=== PATIENT | female | born 1995 | race Caucasian/White ===

== ENCOUNTER → 2020-07-15 | Outpatient (CLI) | payer OTHER ==
[~2020-07-15] MED LIST: AZTH250C PO; BCP; LEVO5TAB2 PO
--- NOTE | 2020-07-15 11:38 | Diagnostic Imaging Report ---
INDICATION: survey. TECHNIQUE: Multiple Real-time grayscale images were obtained over the gravid uterus. COMPARISON: There are no prior studies available for comparison. FINDINGS: There is a single live fetus in breech presentation. heart motion was noted and a rate of 146 BPM was recorded. There were no abnormalities identified. The growth parameters are fairly uniform. The placenta is anterior and low-lying but there is no previa. The amniotic fluid volume is within normal limits. The cervix was identified and measures 6.1 cm in length. Biometrical measurements are as follows: Biparietal 4.69 cm, age 20 weeks 2 days. Head circumference 17.21 cm, age 19 weeks 6 days. Abdominal circumference 15.42 cm, age 20 weeks 5 days. Femur length 3.25 cm, age 20 weeks 1 days. Sonographic estimate age: 20 weeks 2 days. Sonographic estimated date of delivery: 08/31/2020. Estimated Weight: 347 gm (+/- 51 gm). LMP percentile: 80%. heart rate: 146 beats per minute. number: 1 of 1. IMPRESSION: 1. There is a single live fetus of approximately 20 weeks 2 days gestation +/- 1.5 weeks. The EDC is 11/30/2020. 2. There were no abnormalities identified. 3. The placenta is anterior and low lying but there is no previa noted. Dictated by: Dictated on workstation # [id number]
== END ==
LOC: RAD 10:00
PROVIDERS: ATTEND Obstetrics & Gynecology
DX: Z34.02 Encounter for supervision of normal first pregnancy, second trimester (principal); Z3A.20 20 weeks gestation of pregnancy
CPT/HCPCS: 76805